=== PATIENT | female | born 1980 | race American Indian/Alaskan Native ===

== ENCOUNTER 2021-07-14 03:22 | Emergency (ER) | payer MEDICAID ==
[2021-07-14 04:46] LABS: Bilirubin,Urine NEG (Negative); Blood,Urine NEG (Negative); Color,Urine Yellow (Yellow); HCG Qualitative,Urine Negative (Negative); Mucus,Urine FEW /HPF; Protein,Urine <15 mg/dL mg/dL (Negative); Urobilinogen,Urine < 2.0 mg/dL (<2.0)
--- NOTE | 2021-07-14 04:58 | Emergency Department Report ---
ED Female HPI - General Chief complaint: Abdominal Pain Stated complaint: ABD PAIN,CHEST PAIN Source: patient Mode of arrival: Ambulatory Limitations: No Limitations - History of Present Illness Initial comments: Patient is a 41-year-old -Citizen Of The [place] female with a history of PE complication from COVID-19 infection and is currently on blood thinners presents to the ED with complaint of acute onset vaginal discomfort after having an sexual intercourse 2 days ago. Patient states that while having protected sexual intercourse the condom slipped off and she had to stop but continue with a new set of condoms. Patient states that 2 days later she started experiencing tingling sensation in her vagina and was scared and wanted to be evaluated for possible STD. Patient denies vaginal discharge, vaginal bleeding, dysuria, urinary frequency and urgency, chest pain or shortness of breath, low back pain or abdominal pain, fever and chills. MD Complaint: other (Vaginal discomfort) -: Sudden, days(s) (2) Location: other (Vagina) Radiation: non-radiating Severity: mild Quality: dull Consistency: intermittent Improves with: none Worsens with: none Are you Now?: No Associated Symptoms: denies other symptoms. denies: vaginal discharge, vaginal bleeding, abdominal pain, nausea/vomiting, headaches, dysuria, hematuria, rash, seizure, shortness of breath, syncope, weakness - Related Data Sexually active: Yes Previous Rx's Medication Instructions Recorded Last Taken Type Doxycycline Hyclate 100 mg PO Q12H #20 cap 07/14/21 Unknown Rx Allergies Allergy/AdvReac Type Severity Reaction Status Date / Time No Known Allergies Allergy Unverified 07/14/21 03:29 ED Review of Systems ROS: Stated complaint: ABD PAIN,CHEST PAIN Other details as noted in HPI Constitutional: denies: chills, fever Eyes: denies: eye pain, eye discharge, vision change ENT: denies: ear pain, throat pain Respiratory: denies: cough, shortness of breath, wheezing Cardiovascular: denies: chest pain, palpitations Endocrine: no symptoms reported Gastrointestinal: denies: abdominal pain, nausea, diarrhea Genitourinary: other (Vaginal discomfort). denies: urgency, dysuria, discharge Musculoskeletal: denies: back pain, joint swelling, arthralgia Skin: denies: rash, lesions Neurological: denies: headache, weakness, paresthesias Psychiatric: denies: anxiety, depression Hematological/Lymphatic: denies: easy bleeding, easy bruising ED Past Medical Hx - Medications Home Medications: Home Medications Medication Instructions Recorded Confirmed Last Taken Type Doxycycline Hyclate 100 mg PO Q12H #20 cap 07/14/21 Unknown Rx ED Physical Exam - General Limitations: No Limitations General appearance: alert, in no apparent distress - Head Head exam: Present: atraumatic, normocephalic, normal inspection - Eye Eye exam: Present: normal appearance, PERRL, EOMI Pupils: Present: normal accommodation - ENT ENT exam: Present: normal exam, normal orophraynx, mucous membranes moist, TM's normal bilaterally, normal external ear exam - Neck Neck exam: Present: normal inspection, full ROM - Respiratory Respiratory exam: Present: normal lung sounds bilaterally. Absent: respiratory distress, wheezes, rales, rhonchi, chest wall tenderness - Cardiovascular Cardiovascular Exam: Present: regular rate, normal rhythm, normal heart sounds. Absent: systolic murmur, diastolic murmur, rubs, gallop - GI/Abdominal GI/Abdominal exam: Present: soft, normal bowel sounds. Absent: tenderness, guarding, rebound, hyperactive bowel sounds, organomegaly, mass - Bi-manual exam: Present: other (Pelvic exam deferred at this time) - Extremities Exam Extremities exam: Present: normal inspection, full ROM, normal capillary refill. Absent: tenderness - Back Exam Back exam: Present: normal inspection, full ROM. Absent: tenderness, CVA tenderness (R), CVA tenderness (L), muscle spasm, paraspinal tenderness, vertebral tenderness - Neurological Exam Neurological exam: Present: alert, oriented X3, CN II-XII intact, normal gait, reflexes normal - Psychiatric Psychiatric exam: Present: normal affect, normal mood - Skin Skin exam: Present: warm, dry, intact, normal color. Absent: rash ED Course Vital Signs 07/14/21 03:23 Temperature 97.8 F Pulse Rate 78 Respiratory 16 Rate Blood Pressure 129/84 [Right] O2 Sat by Pulse 100 Oximetry ED Medical Decision Making - Medical Decision Making This is a 41-year-old -Citizen Of [place] female with a history of PE complication from COVID-19 infection and is currently on blood thinners presents to the ED with complaint of acute onset vaginal discomfort after having an sexual intercourse 2 days ago. Patient states that while having protected sexual intercourse the condom slipped off and she had to stop but continue with a new set of condoms. Patient states that 2 days later she started experiencing tingling sensation in her vagina and was scared and wanted to be evaluated for possible STD. In the ED, patient is alert and oriented x3 and is not in any distress. Urinalysis is unremarkable. Patient was discharged home on empirical treatment of doxycycline 100 mg twice a day for 10 days and advised to follow-up with the [facility] for further STD testing including HIV. Patient was advised to return to the ED immediately if symptoms get worse. - Differential Diagnosis STD; UTI; trichomonas; gonorrhea; chlamydia Critical care attestation.: If time is entered above; I have spent that time in minutes in the direct care of this critically ill patient, excluding procedure time. ED Disposition Clinical Impression: Possible exposure to STD Disposition: 01 HOME / SELF CARE / HOMELESS Is pt being admited?: No Does the pt Need Aspirin: No Condition: Stable Instructions: Abdominal Pain (ED), Contact Precautions, [id number], Safe Sex Additional Instructions: Your urinalysis test is unremarkable. Therefore take medication prophylactically as advised, follow-up with the [facility] for further STD testing including HIV and syphilis. Observe safe sexual practices. Return to the ED immediately if symptoms get worse. Prescriptions: Doxycycline Hyclate 100 mg PO Q12H #20 cap Referrals: [facility] Depart [Outside] - 3-5 Days Time of Disposition: 04:59 Print Language: CZECH
[2021-07-14] MEDS ORDERED: LIDOCAINE-MPF (1%) 10 MG/1 ML VIAL 5 ML INFILTRATI ONE (05:14)
[2021-07-14 05:28] VITALS: BP 136/82
--- NOTE | 2021-07-14 10:49 | Electrocardiograph Report ---
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
== END 2021-07-14 05:44 | disposition home or self-care (01) ==
LOC: ED 03:22
DX: Z20.2 Contact with and (suspected) exposure to infections with a predominantly sexual mode of transmission (principal)
CPT/HCPCS: 81001; 81025; 93005; 96372; 99283; J0696; J3490